=== PATIENT | female | born 1995 ===

== ENCOUNTER 2018-12-10 13:27 | Emergency (ER) | payer SELFPAY ==
[2018-12-10 13:38] VITALS: BP 121/77
--- NOTE | 2018-12-10 13:39 | Event Note ---
ED Screening Note Date of service: 12/10/18 Time: 13:37 ED Screening Note: This is a 23 y.o. F. that presents to the ER with bilateral eye swelling upon awaking. - pain, redness, denies visual changes. Wears glasses and contacts. Reports a tight sensation to lower eyelids. This initial assessment/diagnostic orders/clinical plan/treatment(s) is/are subject to change based on patients health status, clinical progression and re- assessment by fellow clinical providers in the ED. Further treatment and workup at subsequent clinical providers discretion. Patient/guardian urged not to elope from the ED as their condition may be serious if not clinically assessed and managed. Initial orders include: ACC for further evaluation.
== END 2018-12-10 14:00 | disposition left against medical advice (07) ==
LOC: ED 13:27
DX: H02.841 Edema of right upper eyelid (principal); H02.842 Edema of right lower eyelid; Z53.21 Procedure and treatment not carried out due to patient leaving prior to being seen by health care provider

== ENCOUNTER 2020-03-27 09:33 | Emergency (ER) | payer SELFPAY ==
--- NOTE | 2020-03-27 09:39 | Emergency Department Report ---
ED ENT HPI - General Stated complaint: POSS EAR INFECTION Time Seen by Provider: 03/27/20 09:35 - History of Present Illness Initial comments: 24-year-old female [facility] emerge department complaining of left ear pressure stuck a Q-tip in her ear to try to remove the wax and then noted that her hearing had a significantly decreased and became worse again emerge department for evaluation she reports no bleeding, no headache, no pain, no fever, chills, sweats no odynophagia or dysphagia -: Gradual, Sudden Location: R ear Quality: dull Consistency: constant Improves with: none Worsens with: none Associated Symptoms: denies: gum swelling, pain with swallowing, sore throat, discharge from ear, rhinorrhea - Related Data Allergies Allergy/AdvReac Type Severity Reaction Status Date / Time No Known Allergies Allergy Unverified 12/10/18 13:37 ED Dental HPI - General Stated complaint: POSS EAR INFECTION Time Seen by Provider: 03/27/20 09:35 - Related Data Allergies Allergy/AdvReac Type Severity Reaction Status Date / Time No Known Allergies Allergy Unverified 12/10/18 13:37 ED Review of Systems ROS: Stated complaint: POSS EAR INFECTION Other details as noted in HPI Comment: All other systems reviewed and negative ED Past Medical Hx - Social History Smoking Status: Current Every Day Smoker Substance Use Type: Alcohol ED Physical Exam - General General appearance: alert, in no apparent distress - Head Head exam: Present: atraumatic, normocephalic - Eye Eye exam: Present: normal appearance, PERRL, EOMI Pupils: Present: normal accommodation - ENT ENT exam: Present: mucous membranes moist, other (Stool impaction to the right ear. No bleeding was noted. No tragal tenderness is noted.) - Neck Neck exam: Present: normal inspection - Respiratory Respiratory exam: Present: normal lung sounds bilaterally. Absent: respiratory distress - Cardiovascular Cardiovascular Exam: Present: regular rate, normal rhythm. Absent: systolic murmur, diastolic murmur, rubs, gallop - GI/Abdominal GI/Abdominal exam: Present: soft, normal bowel sounds - Extremities Exam Extremities exam: Present: normal inspection - Back Exam Back exam: Present: normal inspection - Neurological Exam Neurological exam: Present: alert, oriented X3, normal gait, other (Romberg negative gait stable stable stable coordinated and smooth) - Psychiatric Psychiatric exam: Present: normal affect, normal mood - Skin Skin exam: Present: warm, dry, intact, normal color. Absent: rash Critical care attestation.: If time is entered above; I have spent that time in minutes in the direct care of this critically ill patient, excluding procedure time. ED Disposition Clinical Impression: Impacted cerumen of right ear Disposition: MED SCREENING EXAM-LEFT Is pt being admited?: No Does the pt Need Aspirin: No Condition: Stable Instructions: Earwax Buildup, Adult, Ear Drops, Adult, [id number] Additional Instructions: Please utilize [facility] [id number] as directed for 2-3 utilization to clear ear blockage Referrals: [facility] [Provider Group] - 3-5 Days [facility] [Other] - 3-5 Days
== END 2020-03-27 10:47 | disposition left against medical advice (07) ==
LOC: ED 09:33
DX: Z00.8 Encounter for other general examination (principal); Z53.21 Procedure and treatment not carried out due to patient leaving prior to being seen by health care provider